=== PATIENT | male | born 1955 ===

== ENCOUNTER 2023-08-12 13:09 | Outpatient (RCR) | payer MEDICARE, OTHER, SELFPAY | END 2023-08-12 23:59 | disposition home or self-care (01) | LOC: RST 13:09 | PROVIDERS: ATTENDING PHYSICIAN Psychiatry & Neurology Neurology; FAMILY PHYSICIAN Family Medicine | DX: G20.A1 Parkinson's disease without dyskinesia, without mention of fluctuations (principal); F02.80 Dementia in other diseases classified elsewhere, unspecified severity, without behavioral disturbance, psychotic disturbance, mood disturbance, and anxiety; R47.9 Unspecified speech disturbances; R41.840 Attention and concentration deficit | CPT/HCPCS: 96125; 97129; 97130; 97167; 97530; 97535 ==

== ENCOUNTER 2023-09-09 13:05 | Outpatient (RCR) | payer MEDICARE, OTHER, SELFPAY | END 2023-09-09 23:59 | disposition home or self-care (01) | LOC: RST 13:05 | PROVIDERS: ATTENDING PHYSICIAN Psychiatry & Neurology Neurology; FAMILY PHYSICIAN Family Medicine | DX: G20.C Parkinsonism, unspecified (principal); R47.9 Unspecified speech disturbances; R41.841 Cognitive communication deficit; R41.840 Attention and concentration deficit; Z73.6 Limitation of activities due to disability; G31.83 Neurocognitive disorder with Lewy bodies | CPT/HCPCS: 97110; 97129; 97130; 97530; 97535 ==

== ENCOUNTER 2023-10-12 11:28 | Outpatient (RCR) | payer MEDICARE, OTHER, SELFPAY | END 2023-10-12 23:59 | disposition home or self-care (01) | LOC: RST 11:28 | PROVIDERS: ATTENDING PHYSICIAN Psychiatry & Neurology Neurology; FAMILY PHYSICIAN Family Medicine | DX: G20.C Parkinsonism, unspecified (principal); R47.9 Unspecified speech disturbances; G31.83 Neurocognitive disorder with Lewy bodies; R41.841 Cognitive communication deficit; R41.840 Attention and concentration deficit; Z73.6 Limitation of activities due to disability | CPT/HCPCS: 97110; 97129; 97130; 97530; 97535 ==

== ENCOUNTER 2023-11-03 06:40 | Outpatient (RCR) | payer MEDICARE, OTHER, SELFPAY | END 2023-11-03 23:59 | disposition home or self-care (01) | LOC: RST 06:40 | PROVIDERS: ATTENDING PHYSICIAN Psychiatry & Neurology Neurology; FAMILY PHYSICIAN Family Medicine | DX: G20.C Parkinsonism, unspecified (principal); R47.9 Unspecified speech disturbances; R41.841 Cognitive communication deficit; R41.840 Attention and concentration deficit; Z73.6 Limitation of activities due to disability; G31.83 Neurocognitive disorder with Lewy bodies | CPT/HCPCS: 97129; 97130; 97530 ==

== ENCOUNTER 2023-12-01 10:13 | Outpatient (RCR) | payer MEDICARE, OTHER, SELFPAY | END 2023-12-01 23:59 | disposition home or self-care (01) | LOC: RST 10:13 | PROVIDERS: ATTENDING PHYSICIAN Psychiatry & Neurology Neurology; FAMILY PHYSICIAN Family Medicine | DX: G20.C Parkinsonism, unspecified (principal); R47.9 Unspecified speech disturbances; R41.841 Cognitive communication deficit; R41.840 Attention and concentration deficit; Z73.6 Limitation of activities due to disability; G31.83 Neurocognitive disorder with Lewy bodies | CPT/HCPCS: 97129; 97130; 97530; 97535 ==

== ENCOUNTER 2023-12-13 07:28 | Outpatient (RCR) | payer MEDICARE, OTHER, SELFPAY | END 2023-12-13 23:59 | disposition home or self-care (01) | LOC: ROT 07:28 | PROVIDERS: ATTENDING PHYSICIAN Family Medicine | DX: G20.C Parkinsonism, unspecified (principal); G31.83 Neurocognitive disorder with Lewy bodies; Z73.6 Limitation of activities due to disability | CPT/HCPCS: 97112; 97167 ==

== ENCOUNTER 2023-12-17 08:31 | Outpatient (RCR) | payer MEDICARE, OTHER, SELFPAY | END 2023-12-17 23:59 | disposition home or self-care (01) | LOC: RST 08:31 | PROVIDERS: ATTENDING PHYSICIAN Psychiatry & Neurology Neurology; FAMILY PHYSICIAN Family Medicine | DX: G20.C Parkinsonism, unspecified (principal); R47.9 Unspecified speech disturbances; R41.841 Cognitive communication deficit; R41.840 Attention and concentration deficit; Z73.6 Limitation of activities due to disability; G31.83 Neurocognitive disorder with Lewy bodies | CPT/HCPCS: 97129; 97130 ==

== ENCOUNTER 2024-01-10 11:55 | Outpatient (RCR) | payer MEDICARE, OTHER, SELFPAY | END 2024-01-10 23:59 | disposition home or self-care (01) | LOC: ROT 11:55 | PROVIDERS: ATTENDING PHYSICIAN Family Medicine | DX: G20.C Parkinsonism, unspecified (principal); G31.83 Neurocognitive disorder with Lewy bodies; Z73.6 Limitation of activities due to disability | CPT/HCPCS: 97110; 97112; 97530 ==

== ENCOUNTER 2024-01-27 09:16 | Outpatient (RCR) | payer MEDICARE, OTHER, SELFPAY | END 2024-01-27 23:59 | disposition home or self-care (01) | LOC: RST 09:16 | PROVIDERS: ATTENDING PHYSICIAN Psychiatry & Neurology Neurology; FAMILY PHYSICIAN Family Medicine | DX: G20.C Parkinsonism, unspecified (principal); R47.9 Unspecified speech disturbances; R41.841 Cognitive communication deficit; R41.840 Attention and concentration deficit; Z73.6 Limitation of activities due to disability; G31.83 Neurocognitive disorder with Lewy bodies | CPT/HCPCS: 97129; 97130; 97535 ==

== ENCOUNTER 2024-01-27 16:19 | Outpatient (RCR) | payer MEDICARE, OTHER, SELFPAY | END 2024-01-27 23:59 | disposition home or self-care (01) | LOC: ROT 16:19 | PROVIDERS: ATTENDING PHYSICIAN Family Medicine | DX: G20.C Parkinsonism, unspecified (principal); G31.83 Neurocognitive disorder with Lewy bodies; Z73.6 Limitation of activities due to disability ==

== ENCOUNTER 2024-03-06 12:06 | Outpatient (RCR) | payer MEDICARE, OTHER, SELFPAY | END 2024-03-06 23:59 | disposition home or self-care (01) | LOC: RST 12:06 | PROVIDERS: ATTENDING PHYSICIAN Psychiatry & Neurology Neurology; FAMILY PHYSICIAN Family Medicine | DX: G20.C Parkinsonism, unspecified (principal); R47.9 Unspecified speech disturbances; R41.841 Cognitive communication deficit; R41.840 Attention and concentration deficit; Z73.6 Limitation of activities due to disability; G31.83 Neurocognitive disorder with Lewy bodies | CPT/HCPCS: 97129; 97130; 97530 ==

== ENCOUNTER 2024-04-05 10:17 | Outpatient (RCR) | payer MEDICARE, OTHER, SELFPAY | END 2024-04-05 23:59 | disposition home or self-care (01) | LOC: RST 10:17 | PROVIDERS: ATTENDING PHYSICIAN Psychiatry & Neurology Neurology; FAMILY PHYSICIAN Family Medicine | DX: G20.C Parkinsonism, unspecified (principal); R47.9 Unspecified speech disturbances; R41.841 Cognitive communication deficit; R41.840 Attention and concentration deficit; G31.83 Neurocognitive disorder with Lewy bodies; Z73.6 Limitation of activities due to disability | CPT/HCPCS: 97129; 97130; 97530; 97535 ==

== ENCOUNTER 2024-05-03 10:23 | Outpatient (RCR) | payer MEDICARE, OTHER, SELFPAY | END 2024-05-03 23:59 | disposition home or self-care (01) | LOC: RST 10:23 | PROVIDERS: ATTENDING PHYSICIAN Psychiatry & Neurology Neurology; FAMILY PHYSICIAN Family Medicine | DX: G20.C Parkinsonism, unspecified (principal); R47.9 Unspecified speech disturbances; R41.841 Cognitive communication deficit; R41.840 Attention and concentration deficit; Z73.6 Limitation of activities due to disability; G31.83 Neurocognitive disorder with Lewy bodies | CPT/HCPCS: 97129; 97130; 97530; 97535 ==

== ENCOUNTER 2024-05-31 14:07 | Outpatient (RCR) | payer MEDICARE, OTHER, SELFPAY | END 2024-05-31 23:59 | disposition home or self-care (01) | LOC: RST 14:07 | PROVIDERS: ATTENDING PHYSICIAN Psychiatry & Neurology Neurology; FAMILY PHYSICIAN Family Medicine | DX: R41.841 Cognitive communication deficit (principal); G20.C Parkinsonism, unspecified; R47.9 Unspecified speech disturbances; R41.840 Attention and concentration deficit; Z73.6 Limitation of activities due to disability; G31.83 Neurocognitive disorder with Lewy bodies | CPT/HCPCS: 97110; 97129; 97130; 97530; 97535 ==

== ENCOUNTER 2024-08-10 14:28 | Outpatient (RCR) | payer MEDICARE, OTHER, SELFPAY | END 2024-08-10 23:59 | disposition home or self-care (01) | LOC: RST 14:28 | PROVIDERS: ATTENDING PHYSICIAN Psychiatry & Neurology Neurology; FAMILY PHYSICIAN Family Medicine | DX: R41.841 Cognitive communication deficit (principal); G20.C Parkinsonism, unspecified; R47.9 Unspecified speech disturbances; R41.840 Attention and concentration deficit; Z73.6 Limitation of activities due to disability; G31.83 Neurocognitive disorder with Lewy bodies | CPT/HCPCS: 97110; 97129; 97130; 97535 ==

== ENCOUNTER 2024-08-23 14:01 | Outpatient (RCR) | payer MEDICARE, OTHER, SELFPAY | END 2024-08-23 23:59 | disposition home or self-care (01) | LOC: RST 14:01 | PROVIDERS: ATTENDING PHYSICIAN Psychiatry & Neurology Neurology; FAMILY PHYSICIAN Family Medicine | DX: R41.841 Cognitive communication deficit (principal); G20.C Parkinsonism, unspecified; R47.9 Unspecified speech disturbances; R41.840 Attention and concentration deficit; Z73.6 Limitation of activities due to disability; G31.83 Neurocognitive disorder with Lewy bodies | CPT/HCPCS: 97129; 97130; 97530; 97537 ==

== ENCOUNTER 2024-09-20 15:00 | Outpatient (RCR) | payer MEDICARE, OTHER, SELFPAY | END 2024-09-20 23:59 | disposition home or self-care (01) | LOC: RST 15:00 | PROVIDERS: ATTENDING PHYSICIAN Psychiatry & Neurology Neurology; FAMILY PHYSICIAN Family Medicine | DX: R41.841 Cognitive communication deficit (principal); G20.C Parkinsonism, unspecified; R47.9 Unspecified speech disturbances; R41.840 Attention and concentration deficit; Z73.6 Limitation of activities due to disability; G31.83 Neurocognitive disorder with Lewy bodies | CPT/HCPCS: 97129; 97130; 97530; 97535 ==

== ENCOUNTER 2024-10-18 15:14 | Outpatient (RCR) | payer MEDICARE, OTHER, SELFPAY | END 2024-10-18 23:59 | disposition home or self-care (01) | LOC: RST 15:14 | PROVIDERS: ATTENDING PHYSICIAN Psychiatry & Neurology Neurology; FAMILY PHYSICIAN Family Medicine | DX: R41.841 Cognitive communication deficit (principal); G20.C Parkinsonism, unspecified; R47.9 Unspecified speech disturbances; R41.840 Attention and concentration deficit; Z73.6 Limitation of activities due to disability; G31.83 Neurocognitive disorder with Lewy bodies | CPT/HCPCS: 97129; 97130; 97530; 97535 ==

== ENCOUNTER 2024-11-15 14:47 | Outpatient (RCR) | payer MEDICARE, OTHER, SELFPAY | END 2024-11-15 23:59 | disposition home or self-care (01) | LOC: RST 14:47 | PROVIDERS: ATTENDING PHYSICIAN Psychiatry & Neurology Neurology; FAMILY PHYSICIAN Family Medicine | DX: R41.841 Cognitive communication deficit (principal); G20.C Parkinsonism, unspecified; R47.9 Unspecified speech disturbances; R41.840 Attention and concentration deficit; Z73.6 Limitation of activities due to disability; G31.83 Neurocognitive disorder with Lewy bodies | CPT/HCPCS: 97129; 97130; 97530 ==

== ENCOUNTER 2024-12-13 14:10 | Outpatient (RCR) | payer MEDICARE, OTHER, SELFPAY | END 2024-12-13 23:59 | disposition home or self-care (01) | LOC: RST 14:10 | PROVIDERS: ATTENDING PHYSICIAN Psychiatry & Neurology Neurology; FAMILY PHYSICIAN Family Medicine | DX: R41.841 Cognitive communication deficit (principal); G20.C Parkinsonism, unspecified; R47.9 Unspecified speech disturbances; R41.840 Attention and concentration deficit; Z73.6 Limitation of activities due to disability; G31.83 Neurocognitive disorder with Lewy bodies | CPT/HCPCS: 97129; 97130; 97530 ==

== ENCOUNTER 2025-01-24 08:43 | Outpatient (RCR) | payer MEDICARE, OTHER, SELFPAY | END 2025-01-24 23:59 | disposition home or self-care (01) | LOC: RST 08:43 | PROVIDERS: ATTENDING PHYSICIAN Psychiatry & Neurology Neurology; FAMILY PHYSICIAN Family Medicine | DX: R41.841 Cognitive communication deficit (principal); G20.C Parkinsonism, unspecified; R47.9 Unspecified speech disturbances; R41.840 Attention and concentration deficit; Z73.6 Limitation of activities due to disability; G31.83 Neurocognitive disorder with Lewy bodies | CPT/HCPCS: 97129; 97130; 97530 ==

== ENCOUNTER 2025-02-21 09:55 | Outpatient (RCR) | payer MEDICARE, OTHER, SELFPAY | END 2025-02-27 08:05 | disposition home or self-care (01) | LOC: RST 09:55 | PROVIDERS: ATTENDING PHYSICIAN Psychiatry & Neurology Neurology; FAMILY PHYSICIAN Family Medicine | DX: R41.841 Cognitive communication deficit (principal); G20.C Parkinsonism, unspecified; R47.9 Unspecified speech disturbances; R41.840 Attention and concentration deficit; Z73.6 Limitation of activities due to disability; G31.83 Neurocognitive disorder with Lewy bodies | CPT/HCPCS: 97129; 97130; 97530; 97535 ==